=== PATIENT | male | born 1975 | race Caucasian/White ===

== ENCOUNTER 2017-03-19 12:07 | Emergency (ER) | payer OTHER ==
[~2017-03-19] VITALS: Ht 180.3 cm; Wt 68.1 kg
[2017-03-19 13:03] LABS: HEMATOCRIT 45.7 % (38.0-50.0); MCH 32.8 PG (29.0-34.0); MCV 93.6 FL (86-99); MEAN PLAT.VOLUME 9.4 uM^3 (9.0-12.4); PLATELET COUNT 410 K/uL (156-360); RBC DIS.WIDTH-CV 14.6 % (11.8-14.6); RBC DIS.WIDTH-SD 50.9 % (39-53); RED BLOOD COUNT 4.88 M/uL (4.00-5.50); WHITE BLOOD COUNT 12.5 K/uL (4.1-10.2)
[2017-03-19 13:11] LABS: CHLORIDE 108 mEq/L (99-109); POTASSIUM 3.5 mEq/L (3.7-5.4); SODIUM 142 mEq/L (136-147)
[2017-03-19 13:13] LABS: GLUCOSE 130 mg/dL (70-99)
[2017-03-19 13:14] LABS: ANION GAP 17 MEQ/L (2-14)
[2017-03-19 13:15] LABS: TOTAL BILIRUBIN 1.2 mg/dL (0.0-1.0)
[2017-03-19 13:16] LABS: ALKALINE PHOSPHATASE 83 IU/L (3-129); GFR ESTIMATE (CALCULATED) > 59 mL/min/
[2017-03-19 13:18] LABS: UREA NITROGEN (BUN) 12 mg/dL (9-23)
[2017-03-19 14:08] LABS: LIPASE 7 U/L (1.0-51.0)
[2017-03-19 15:47] LABS: ADD MIUA? NO; BILIRUBIN SMALL; BLOOD NEGATIVE; COLOR YELLOW ((YELLOW)); GLUCOSE (STRIP) NEGATIVE; KETONES NEGATIVE; LEUKOCYTES NEGATIVE; NITRITE NEGATIVE; PROTEIN (STRIP) 30; UCUL ADDED? NO; UROBILINOGEN 0.2 MG/DL (0.2-1.0)
[2017-03-19] MEDS ORDERED: FLAGYL500 MG PO (17:40)
[2017-03-19] MEDS ORDERED: BENTYL20 MG PO (17:40)
[2017-03-19] MEDS ORDERED: ZOFRAN ODT4 MG PO (17:40)
[2017-03-19] MEDS ORDERED: CIPRO500 MG PO (17:40)
[2017-03-19 17:47] VITALS: BP 125/60
== END 2017-03-19 17:48 | disposition home or self-care (01) ==
LOC: EME 12:07
DX: K52.9 Noninfective gastroenteritis and colitis, unspecified (principal); F17.200 Nicotine dependence, unspecified, uncomplicated
CPT/HCPCS: 74177; 80053; 81003; 83690; 85027; 99281; 99284; J2405; J3010; J7030

== ENCOUNTER 2017-06-06 11:53 | Emergency (ER) | payer OTHER ==
[~2017-06-06] VITALS: Ht 180.3 cm; Wt 68.1 kg
[~2017-06-06 11:53] MED LIST: BENTYL20 MG PO; CIPRO500 MG PO; FLAGYL500 MG PO; ZOFRAN ODT4 MG PO
[2017-06-06 12:56] LABS: HEMATOCRIT 47.8 % (38.0-50.0); MCH 35.6 PG (29.0-34.0); MCHC 35.6 G/DL (30.0-36.0); MEAN PLAT.VOLUME 9.6 uM^3 (9.0-12.4); PLATELET COUNT 369 K/uL (156-360); RBC DIS.WIDTH-CV 13.1 % (11.8-14.6); RBC DIS.WIDTH-SD 48.2 % (39-53); RED BLOOD COUNT 4.78 M/uL (4.00-5.50); WHITE BLOOD COUNT 11.3 K/uL (4.1-10.2)
[2017-06-06 13:08] LABS: CHLORIDE 104 mEq/L (99-109); SODIUM 140 mEq/L (136-147)
[2017-06-06 13:10] LABS: GLUCOSE 115 mg/dL (70-99)
[2017-06-06 13:11] LABS: ANION GAP 11 MEQ/L (2-14)
[2017-06-06 13:12] LABS: TOTAL BILIRUBIN 0.7 mg/dL (0.0-1.0)
[2017-06-06 13:14] LABS: ALKALINE PHOSPHATASE 110 IU/L (3-129); GFR ESTIMATE (CALCULATED) > 59 mL/min/ (58.99-99999)
[2017-06-06 13:15] LABS: UREA NITROGEN (BUN) 12 mg/dL (9-23)
[2017-06-06 13:17] LABS: LIPASE 12 U/L (1.0-51.0)
[2017-06-06 16:05] LABS: ADD MIUA? YES; BILIRUBIN NEGATIVE; BLOOD NEGATIVE; COLOR AMBER ((YELLOW)); GLUCOSE (STRIP) NEGATIVE; KETONES 20; LEUKOCYTES TRACE; NITRITE NEGATIVE; PROTEIN (STRIP) 100; SPECIFIC GRAVITY 1.032 (1.000-1.030)
[2017-06-06 16:18] LABS: BACTERIA RARE /HPF; EPITHELIAL CELLS NONE SEEN /HPF; HYALINE CASTS 0-5 /LPF; MUCUS 4+ /LPF; RED BLOOD CELLS NONE SEEN /HPF (0-5); UCUL ADDED? NO; WHITE BLOOD CELLS 0-5 /HPF (0-5)
[2017-06-06 16:19] LABS: ADD MEDTOX COMMENT Y; AMPHETAMINE NEGATIVE (500 ng/mL); BARBITURATES NEGATIVE (200 ng/mL); BENZODIAZEPINES NEGATIVE (150 ng/mL); COCAINE NEGATIVE (150 ng/mL); INTERNAL CONTROLS VALID? YES; METHADONE NEGATIVE (200 ng/mL); METHAMPHETAMINE NEGATIVE (500 ng/mL); OPIATES (MORPHINE) NEGATIVE (100 ng/mL); OXYCODONE NEGATIVE (100 ng/mL); PHENCYCLIDINE NEGATIVE (25 ng/mL); PROPOXYPHENE NEGATIVE (300 ng/mL); THC CANNABINOIDS PRESUMPTIVE POSITIVE (50 ng/mL); TRICYCLIC ANTIDEPRESSANTS NEGATIVE (300 ng/mL)
[2017-06-06] MEDS ORDERED: PHENERGAN25 MG PR (17:08)
[2017-06-06] MEDS ORDERED: PROMETHAZINE HC25 M1 PO (17:08)
[2017-06-06] MEDS ORDERED: ARTHRITIS PAIN57 G1 TP (17:10)
[2017-06-06 17:30] VITALS: BP 164/73
== END 2017-06-06 17:31 | disposition home or self-care (01) ==
LOC: EME 11:53
PROVIDERS: Physician Assistant
DX: T40.7X5A Adverse effect of cannabis (derivatives), initial encounter (principal); R10.9 Unspecified abdominal pain; G89.29 Other chronic pain; K21.9 Gastro-esophageal reflux disease without esophagitis; G43.A0 Cyclical vomiting, in migraine, not intractable; F17.200 Nicotine dependence, unspecified, uncomplicated; Z88.5 Allergy status to narcotic agent
CPT/HCPCS: 80053; 81003; 83690; 84999; 85027; 99281; 99284; J1200; J1885; J2060; J2550; J2765; J7030